=== PATIENT | female | born 1995 | race Caucasian/White ===

== ENCOUNTER → 2018-10-27 | Emergency (ER) | payer OTHER ==
[~2018-10-27] VITALS: Ht 170.2 cm; Wt 68.0 kg
== END | disposition home or self-care (01) ==
LOC: ER 20:36
DX: O26.891 Other specified pregnancy related conditions, first trimester (principal); J06.9 Acute upper respiratory infection, unspecified; Z34.01 Encounter for supervision of normal first pregnancy, first trimester

== ENCOUNTER 2018-10-28 14:30 | Emergency (ER) | payer OTHER ==
[~2018-10-28] VITALS: Ht 170.2 cm; Wt 68.0 kg
== END 2018-10-28 16:16 | disposition home or self-care (01) ==
LOC: ER 14:30
DX: N39.0 Urinary tract infection, site not specified (principal)

== ENCOUNTER 2018-11-22 19:23 | Emergency (ER) | payer OTHER ==
[~2018-11-22] VITALS: Ht 170.2 cm; Wt 75.3 kg
[2018-11-22] MEDS ORDERED: PRENA1 TRUE CO1 EACH (19:29)
== END 2018-11-22 22:47 | disposition home or self-care (01) ==
LOC: ER 19:23
DX: J11.1 Influenza due to unidentified influenza virus with other respiratory manifestations (principal)

== ENCOUNTER 2018-12-06 14:49 | Emergency (ER) | payer OTHER ==
[~2018-12-06] VITALS: Ht 170.2 cm; Wt 72.6 kg
[~2018-12-06 14:49] MED LIST: PRENA1 TRUE CO1 EACH
== END 2018-12-06 19:24 | disposition home or self-care (01) ==
LOC: ER 14:49
DX: O26.892 Other specified pregnancy related conditions, second trimester (principal); J06.9 Acute upper respiratory infection, unspecified; Z34.02 Encounter for supervision of normal first pregnancy, second trimester

== ENCOUNTER → 2018-12-07 | Emergency (ER) | payer OTHER ==
[~2018-12-07] VITALS: Ht 170.2 cm; Wt 72.6 kg
[~2018-12-07] MED LIST changes: -PRENA1 TRUE CO1 EACH; +PRENA1 TRUE CO1 EACH PO
== END | disposition left against medical advice (07) ==
LOC: ER 19:44
DX: Z53.20 Procedure and treatment not carried out because of patient's decision for unspecified reasons (principal)

== ENCOUNTER 2018-12-08 11:01 | Inpatient (IN) | payer OTHER ==
[~2018-12-08] VITALS: Ht 170.2 cm; Wt 72.6 kg
--- NOTE | 2018-12-08 11:27 | NUR ---
SE RECIBE PTE EN SILLA DE CALLUM ACOMPANADA DE FAMILIAR QUIEN REFIERE QUE DESDE HACE 3 DEL ANGEL COMENZO A SENTIR MOLESTIA EN EL PECHO, DOLOR DE ESPALDA Y TOS. SE OBSERVA PTE LLOROSA. SE UBICA A PTE EN PEARL PARA SER EVALUADA POR DRA. RAMSEY.
--- NOTE | 2018-12-08 12:27 | NUR ---
SE ORIENTA A PT SOBRE ORDENES MEDICAS LA CUAL REFIERE ENTENDER. SE LE COLECTAB MUESTRAS Y SE CANALIZA BAJO MEDIDAS ASEPTICAS PT TOLERA IVF PATENTE. SE EL ADMINISTRAN MEDICAMENTOS JULISA ORDEN PT NO PRESENTA REACCION ADVERSA.
--- NOTE | 2018-12-08 14:26 | NUR ---
SE ORIENTA A PT SOBRE ORDENES MEDICAS, SE LE ADMINISTRA MEDICAMENTO JULISA PRESCRITO PT TOLERA.
== END 2018-12-14 13:43 | DRG 832 ==
LOC: ER 11:01 → OB/GYN 14:10 → SEC-K 14:10 → OB/GYN 15:11
PROVIDERS: ADMIT Obstetrics & Gynecology
PROC: 3E0F7GC Introduction of Other Therapeutic Substance into Respiratory Tract, Via Natural or Artificial Opening (ICD-10-PCS; principal; 2018-12-09)
DX: O98.511 Other viral diseases complicating pregnancy, first trimester (principal); J45.901 Unspecified asthma with (acute) exacerbation; N39.0 Urinary tract infection, site not specified; J11.1 Influenza due to unidentified influenza virus with other respiratory manifestations; A49.3 Mycoplasma infection, unspecified site

== ENCOUNTER → 2019-01-17 | Emergency (ER) | payer OTHER ==
[~2019-01-17] VITALS: Ht 170.2 cm; Wt 72.6 kg
== END | disposition home or self-care (01) ==
LOC: ER 03:14
DX: L23.9 Allergic contact dermatitis, unspecified cause (principal); R21 Rash and other nonspecific skin eruption

== ENCOUNTER 2019-04-23 07:57 | Outpatient (CLI) | payer OTHER | END 2019-04-23 13:43 | disposition home or self-care (01) | LOC: OBS/DEL 07:57 | DX: O26.843 Uterine size-date discrepancy, third trimester (principal); O35.0XX1 Maternal care for (suspected) central nervous system malformation in fetus, fetus 1; O36.8193 Decreased fetal movements, unspecified trimester, fetus 3 ==

== ENCOUNTER 2019-05-03 09:03 | Outpatient (CLI) | payer OTHER | END 2019-05-03 14:36 | disposition home or self-care (01) | LOC: OBS/DEL 09:03 | DX: O76 Abnormality in fetal heart rate and rhythm complicating labor and delivery (principal); O36.5993 Maternal care for other known or suspected poor fetal growth, unspecified trimester, fetus 3 ==

== ENCOUNTER 2019-05-10 05:19 | Inpatient (IN) | payer OTHER ==
[~2019-05-10] VITALS: Ht 170.2 cm; Wt 2.3 kg
== END 2019-05-13 13:04 | disposition home or self-care (01) | DRG 788 ==
LOC: LDR 05:19 → OB/GYN 05:19
PROVIDERS: ADMIT Obstetrics & Gynecology
PROC: 4A1HXCZ Monitoring of Products of Conception, Cardiac Rate, External Approach (ICD-10-PCS; 2019-05-10)
PROC: 4A033R1 Measurement of Arterial Saturation, Peripheral, Percutaneous Approach (ICD-10-PCS; 2019-05-10)
PROC: 10D00Z1 Extraction of Products of Conception, Low, Open Approach (ICD-10-PCS; principal; 2019-05-10 17:15)
DX: O76 Abnormality in fetal heart rate and rhythm complicating labor and delivery (principal); O36.5930 Maternal care for other known or suspected poor fetal growth, third trimester, not applicable or unspecified; Z3A.37 37 weeks gestation of pregnancy; Z37.0 Single live birth